=== PATIENT | male | born 1950 | race African-American/Black ===

== ENCOUNTER 2020-03-17 09:26 | Outpatient (CLI) | payer MEDICARE ==
--- NOTE | 2020-03-17 09:49 | ULT ---
ULTRASOUND ABDOMINAL AORTA: HISTORY: Screening for abdominal aortic aneurysm FINDINGS: The abdominal aortic measurements are as follows: Proximal: 1.6 x 1.7 x 1.5cm Mid: 1.6 x 1.4 x 1.5cm Distal: 1.5 x 1.4 x 1.9cm IMPRESSION: No evidence of abdominal aortic aneurysm.
== END 2020-03-17 09:27 | disposition home or self-care (01) ==
LOC: BICULT 09:26
PROVIDERS: ATTEND Internal Medicine
DX: Z00.00 Encounter for general adult medical examination without abnormal findings (principal); Z13.6 Encounter for screening for cardiovascular disorders
CPT/HCPCS: 76775

== ENCOUNTER 2021-02-11 07:31 | Outpatient (CLI) | payer MEDICARE | END 2021-02-11 07:32 | disposition home or self-care (01) | LOC: TBSIIMAG 07:31 | PROVIDERS: ATTEND Anesthesiology Pain Medicine | DX: M47.26 Other spondylosis with radiculopathy, lumbar region (principal); Z98.890 Other specified postprocedural states | CPT/HCPCS: 72148 ==